=== PATIENT | male | born 1945 | race Caucasian/White ===

== ENCOUNTER → 2016-11-17 | Outpatient (CLI) | payer BC | LOC: RAD 13:54 | DX: Z01.818 Encounter for other preprocedural examination (principal); I50.20 Unspecified systolic (congestive) heart failure | CPT/HCPCS: 71020 ==

== ENCOUNTER → 2016-12-08 | Outpatient (CLI) | payer BC | LOC: KOH-I 14:00 | DX: M79.662 Pain in left lower leg (principal); M79.89 Other specified soft tissue disorders; I82.432 Acute embolism and thrombosis of left popliteal vein | CPT/HCPCS: 93971 ==